=== PATIENT | female | born 1940 | race Caucasian/White ===

== ENCOUNTER 2018-05-05 23:25 | Emergency (ER) | payer OTHER ==
[~2018-05-05] VITALS: Ht 167.6 cm; Wt 70.3 kg
[~2018-05-05 23:25] MED LIST: ALBUTEROL SULF8.5 GM INH; CALCITRATE + D1 EACH; DIGOXIN250 MCG PO; ENALAPRIL MALEAT5 MG; FISH OIL 1,0001 EAC2 PO; MACRODANTIN100 MG PO; MEDROL4 MG/DOSE- PO; MULTIVITAMIN; TYLENOL WITH C1 EACH PO; ULTRAM50 MG PO; WARFARIN SODIU2.5 MG PO; Z.0.CELEBREX200 MG; Z.0.DIGOXIN125 MCG; Z.0.EVISTA60 MG PO; Z.0.LYRICA75 MG PO; Z.0.METOPROLOL SUCC5 PO; Z.0.SYNTHROID125 MCG PO; Z.0.VYTORIN 10-201 E; ZITHROMAX TRI-500 MG PO; [UNRECOGNIZED DRUG - OTHER] PO
--- NOTE | 2018-05-06 00:18 | Diagnostic Imaging Report ---
CHEST 2 VIEWS, Technique: CHEST 2 VIEWS Comparison: 08/27/2014 Clinical history: Hypertension DISCUSSION: Stable appearance of the heart, mediastinum, lungs and pleural spaces. Unchanged mild cardiomegaly and interstitial prominence. IMPRESSION: Stable chest without acute abnormality. Signed by: Dr Sil Nieves MD on 05/06/2018 12:14 AM
[2018-05-06 00:50] LABS: BASOPHILS % 0.4 % (0.0-1.0); EOSINOPHILS # (AUTO) 0.1 (0.0-0.4); HEMATOCRIT 34.5 % (34.2-44.1); HEMOGLOBIN 11.3 g/dL (12.0-16.0); LYMPHOCYTES # (AUTO) 1.8 (1.0-3.2); LYMPHOCYTES % 34.2 % (18.0-39.1); MEAN CORPUSCULAR HEMOGLOBIN 31.8 pg (28-32); MEAN CORPUSCULAR HGB CONC 32.8 g/dL (31-35); MEAN CORPUSCULAR VOLUME 97.2 fL (81-99); MONOCYTES # (AUTO) 0.5 (0.2-0.8); MONOCYTES % 10.2 % (4.4-11.3); NEUTROPHILS # (AUTO) 2.8 (2.1-6.9); NEUTROPHILS % 53.8 % (38.7-80.0); PLATELET COUNT 189 x10e3/uL (140-360); RED BLOOD COUNT 3.55 x10e6/uL (3.6-5.1); RED CELL DISTRIBUTION WIDTH 13.2 % (11.7-14.4)
[2018-05-06 00:54] LABS: CLARITY,URINE CLEAR (CLEAR); COLOR,URINE YELLOW (YELLOW); KETONES,URINE NEGATIVE (NEGATIVE); LEUKOCYTE ESTERASE ,URINE TRACE (NEGATIVE); NITRITE,URINE NEGATIVE (NEGATIVE); PROTEIN,URINE DIPSTICK 1+ (NEGATIVE)
[2018-05-06 00:55] LABS: BILIRUBIN,URINE NEGATIVE (NEGATIVE); URINE UROBILINOGEN 0.2 mg/dL (0.2 - 1)
[2018-05-06 00:57] LABS: INR 2.5; PROTHROMBIN TIME 25.4 seconds (11.9-14.5)
[2018-05-06 00:58] LABS: PARTIAL THROMBOPLASTIN TIME 34.4 seconds (23.8-35.5)
[2018-05-06 01:10] LABS: ALANINE AMINOTRANSFERASE 60 IU/L (0-55); ALBUMIN 4.1 g/dL (3.5-5.0); ALBUMIN/GLOBULIN RATIO 1.1 (0.8-2.0); ALKALINE PHOSPHATASE 59 IU/L (40-150); ANION GAP 11.9 mmol/L (8-16); BLOOD UREA NITROGEN 18 mg/dL (7-26); BUN/CREATININE RATIO 23 (6-25); CALCIUM 9.9 mg/dL (8.4-10.2); CARBON DIOXIDE 28 mmol/L (22-29); CHLORIDE 104 mmol/L (98-107); CREATINE KINASE 83 IU/L (29-168); CREATININE, SERUM 0.77 mg/dL (0.57-1.11); EST GLOMERULAR FILTRATION RATE > 60 ML/MIN (60-); GLUCOSE 106 mg/dL (74-118); MAGNESIUM 1.6 MG/DL (1.3-2.1); POTASSIUM 3.9 mmol/L (3.5-5.1); SODIUM 140 mmol/L (136-145)
[2018-05-06 01:13] LABS: BACTERIA,URINE RARE /HPF; EPITHELIAL CELLS,URINE RARE /LPF; MUCUS,URINE MANY (RARE); RBC,URINE 0-5 /HPF (0-5); WBC,URINE (MAN) 0-5 /HPF (0-5)
[2018-05-06 01:48] VITALS: BP 159/89
== END 2018-05-06 08:43 | disposition home or self-care (01) ==
LOC: ER 23:25
DX: I10 Essential (primary) hypertension (principal); E11.9 Type 2 diabetes mellitus without complications; I48.91 Unspecified atrial fibrillation; J44.9 Chronic obstructive pulmonary disease, unspecified
CPT/HCPCS: 36415; 71046; 80053; 81001; 82550; 82553; 83735; 83880; 84484; 85025; 85610; 85730; 93005; 99284

== ENCOUNTER → 2018-06-04 | Outpatient (CLI) | payer OTHER ==
[~2018-06-04] MED LIST changes: +REGADENOSON 0.4 MG/5 ML SYR IV ONE
--- NOTE | 2018-06-05 14:06 | Cardiology Report ---
DATE OF STUDY: June 04, 2018 LEXISCAN NUCLEAR STRESS TEST INDICATIONS: Chest pain. DESCRIPTION OF PROCEDURE: After informed consent, patient was brought to the stress lab. She was given 11 mCi of technetium 99 Myoview and myocardial perfusion SPECT image was obtained in the horizontal long-axis, short-axis and vertical long-axis views. Subsequently, patient was given 0.4 mg Lexiscan over 10 seconds. Patient was given 32 mCi of technetium 99 Myoview, and myocardial perfusion SPECT images obtained in the horizontal long-axis, short-axis and vertical long-axis views. Gated images were also obtained. Patient tolerated the procedure without any complications. REPORT: Baseline EKG shows sinus rhythm at 86 beats per minute normal axis, normal intervals, nonspecific ST-T changes. PARAMETERS 1. Resting heart rate is 77 beats. 2. Maximum heart rate is 107 beats per minute. 3. Resting blood pressure is 203/105 mmHg. 4. Maximum blood pressure is 203/105 mmHg. REASON FOR TERMINATION: Endpoint attained. INTERPRETATION 1. Negative chest pain. 2. Negative for arrhythmias. 3. Blood response consistent with Lexiscan. 4. No significant ST-T changes seen during Lexiscan infusion compared to baseline. 5. Analysis SPECT images reveals uniform radioisotope uptake in all segments of myocardium without any significant perfusion defects. CONCLUSION: 1. No evidence of significant ischemia or infarction on study. 2. No wall motion abnormalities. 3. Overall ejection fraction is 56%. Job#: [id number]
== END ==
LOC: NM 07:23
DX: R07.2 Precordial pain (principal)
CPT/HCPCS: 78452; 93017; A9502

== ENCOUNTER → 2020-05-14 | Day surgery (SDC) | payer OTHER ==
[2020-05-10 14:58] LABS: BASOPHILS % 0.3 % (0.0-1.0); EOSINOPHILS % 0.6 % (0.0-6.0); HEMOGLOBIN 12.5 g/dL (12.0-16.0); LYMPHOCYTES # (AUTO) 1.9 (1.0-3.2); LYMPHOCYTES % 28.9 % (18.0-39.1); MEAN CORPUSCULAR HEMOGLOBIN 30.5 pg (28-32); MEAN CORPUSCULAR HGB CONC 32.1 g/dL (31-35); MEAN CORPUSCULAR VOLUME 95.1 fL (81-99); MONOCYTES # (AUTO) 0.8 (0.2-0.8); MONOCYTES % 12.3 % (4.4-11.3); NEUTROPHILS # (AUTO) 3.8 (2.1-6.9); NEUTROPHILS % 57.5 % (38.7-80.0); PLATELET COUNT 204 x10e3/uL (140-360); RED CELL DISTRIBUTION WIDTH 13.7 % (11.7-14.4)
[2020-05-10 15:20] LABS: ALBUMIN 4.2 g/dL (3.5-5.0); ALBUMIN/GLOBULIN RATIO 1.1 (0.8-2.0); ANION GAP 13.9 mmol/L (8-16); CALCIUM 10.3 mg/dL (8.4-10.2); CREATININE, SERUM 1.03 mg/dL (0.57-1.11); POTASSIUM 4.9 mmol/L (3.5-5.1)
[~2020-05-14] VITALS: Ht 167.6 cm; Wt 77.1 kg
[~2020-05-14] MED LIST changes: +ALPRAZOLAM 0.5 MG TAB ONE; +CALCIUM600 MG PO; +CENTRUM SILVER1 EAC5 PO; +DIPHENHYDRAMINE HCL 25 MG CAP ONE; +FAMOTIDINE 20 MG/2 ML VIAL IV ONE; +FENTANYL CITRATE/PF 100MCG/2 ML INJ ONE; +FUROSEMIDE40 MG PO; +HEPARIN SOD/SOD CHLORIDE 2,000 ML ONE; +IOPAMIDOL 370 MG/ML 200 ML INFUS..BTL INJ ONE; +LEVOTHYROXINE175 MCG PO; +LIDOCAINE HCL 2% LOCAL 20 ML VIAL ONE; +LIPITOR20 MG PO; +METFORMIN HCL500 MG PO; +METHYLPREDNISOLONE SOD SUCC 125 MG/2ML VIAL ONE; +METOPROLOL TART50 MG PO; +MIDAZOLAM HCL 2 MG/2 ML VIAL ONE; +POTASSIUM CHLO20 ME1 PO; -REGADENOSON 0.4 MG/5 ML SYR IV ONE; +SODIUM CHLORIDE 0.9% 1000ML 1,000 ML ONE; +VERAPAMIL HCL 2.5 MG/ML 2 ML VIAL ONE; +VITAMIN D3 PO
[2020-05-14 09:45] VITALS: BP 135/80
[2020-05-14 10:30] VITALS: BP 155/83
--- NOTE | 2020-05-14 10:30 | NUR ---
1030am RECEIVING NOTE [employer] COUNSEL[employer] RECOV[employer] DEPT............................................................... Bedside report received from IDANIA Mariscal. [id number]. Alert oriented and appropriate, PERRLA, respirations even and unlabored to room air. Pulses x4 extremities equal and strong. Pedal pulses PT/DP x4 and marked. Cap fill brisk < 3 sec. Skin warm and dry integrity appears D/I. IV 20g to XXX presents healthy w/o s/s of infiltration or complaint. Abdomen soft and supple. pt offered toileting, denies need to urinate or defecate. No personal affects with patient. Family at bedside Dr Sy spoke to daughter. Pt and family verbalizes understanding of POC. Currently w/o complaint of pain or need. mikhail/rn
[2020-05-14 10:45] VITALS: BP 121/87
--- NOTE | 2020-05-14 10:58 | Operative Report ---
DATE OF PROCEDURE: 05/14/2020 SURGEON: Alejandro Sy MD INDICATION: Coronary artery disease, abnormal stress test, and angina. COMPLICATIONS: None. RECOMMENDATIONS: Medical therapy. PROCEDURES PERFORMED: 1. Conscious sedation, 35 minutes. 2. Left heart catheterization, selective coronary angiography. 3. Deployment of right groin Mynx closure device. DESCRIPTION OF PROCEDURE: Access was obtained in the right femoral artery. A 6-Romansh sheath was placed. Coronary angiography demonstrated mild coronary artery disease 10% to 20% luminal stenosis in the left main, proximal left anterior descending artery, circumflex artery, and right coronary artery. Mid left anterior descending artery 50% stenosis. LV end-diastolic pressure of 15, 10 to 15 mm [id number] aortic valve gradient on pullback and no intervention deemed necessary. Right groin repaired using Mynx closure device. The patient discharged home same day. Alejandro Sy MD [facility] /[id number]
[2020-05-14 11:00] VITALS: BP 146/77
[2020-05-14 11:30] VITALS: BP 144/77
[2020-05-14 12:00] VITALS: BP 148/66
--- NOTE | 2020-05-14 12:00 | NUR ---
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 Rt Groin Mynx site assessed for s/s of complication and presence of hematoma. Skin warm, dry, no discolor, and pulses present. IV removed from left wrist. Distal tip appears intact. VS WNL. Pt denies pain, sob, or need at this time. Family at bedside. Review of discharge paperwork and follow up instructions. verbalized understanding. Pt to wheelchair and transported to front of hospital. Transferred to private vehicle under own strength w/o incident with DC paperwork in hand. - mikhail/july
== END | disposition home or self-care (01) ==
LOC: CATH LAB 07:26
PROVIDERS: ATTEND Internal Medicine Interventional Cardiology
DX: I25.118 Atherosclerotic heart disease of native coronary artery with other forms of angina pectoris (principal); R94.39 Abnormal result of other cardiovascular function study; I27.20 Pulmonary hypertension, unspecified; I48.91 Unspecified atrial fibrillation; J44.9 Chronic obstructive pulmonary disease, unspecified; E11.9 Type 2 diabetes mellitus without complications; Z91.041 Radiographic dye allergy status; Z01.812 Encounter for preprocedural laboratory examination; Z11.59 Encounter for screening for other viral diseases; Z79.01 Long term (current) use of anticoagulants; Z79.84 Long term (current) use of oral hypoglycemic drugs; Z82.49 Family history of ischemic heart disease and other diseases of the circulatory system
CPT/HCPCS: 36415; 80053; 85025; 87635; 93454; 93458; 99152; C1760; C1769; J2001; J2250; J2930; J3010; J7030; Q9967

== ENCOUNTER → 2021-12-01 | Day surgery (SDC) | payer OTHER ==
[2021-11-29 09:20] LABS: BASOPHILS % 0.3 % (0.0-1.0); EOSINOPHILS % 0.4 % (0.0-6.0); HEMATOCRIT 41.2 % (34.2-44.1); HEMOGLOBIN 12.6 g/dL (12.0-16.0); LYMPHOCYTES # (AUTO) 1.7 (1.0-3.2); LYMPHOCYTES % 25.1 % (18.0-39.1); MEAN CORPUSCULAR HGB CONC 30.6 g/dL (31-35); MEAN CORPUSCULAR VOLUME 101.2 fL (81-99); MONOCYTES # (AUTO) 0.7 (0.2-0.8); NEUTROPHILS # (AUTO) 4.4 (2.1-6.9); NEUTROPHILS % 63.9 % (38.7-80.0); PLATELET COUNT 169 x10e3/uL (140-360); RED BLOOD COUNT 4.07 x10e6/uL (3.6-5.1); RED CELL DISTRIBUTION WIDTH 12.9 % (11.7-14.4)
[2021-11-29 09:40] LABS: ANION GAP 14.1 mmol/L (8-16); CALCIUM 10.4 mg/dL (8.4-10.2); CREATININE, SERUM 0.96 mg/dL (0.57-1.11); POTASSIUM 4.1 mmol/L (3.5-5.1)
[~2021-12-01] MED LIST changes: -ALPRAZOLAM 0.5 MG TAB ONE; +ANORO ELLIPTA1 EACH; +B12 ACTIVE1000 MCG; +BALANCED SALT SOLN (OPTH) 15 ML BTL IO ONE; +BUPIVACAINE HC 0.75% PF 10ML VIAL INJ ONE; +CYCLOPENTOLATE HCL 2% OPTH SOLN 2 ML BTL OP ONE; -DIPHENHYDRAMINE HCL 25 MG CAP ONE; +ELIQUIS5 MG PO; +EPINEPHRINE HCL 1:1000 1ML 1 MG/ML AMP ONE; -FAMOTIDINE 20 MG/2 ML VIAL IV ONE; -FENTANYL CITRATE/PF 100MCG/2 ML INJ ONE; +GATIFLOXACIN(OPTH) 5 ML LIQD ONE; -HEPARIN SOD/SOD CHLORIDE 2,000 ML ONE; -IOPAMIDOL 370 MG/ML 200 ML INFUS..BTL INJ ONE; +IRON; +LIDOCAINE 2% /EPINEPHRINE 20 ML SDV INJ ONE; -LIDOCAINE HCL 2% LOCAL 20 ML VIAL ONE; +LIDOCAINE HCL 2% LOCAL INJ 5 ML SDV VIAL INJ ONE; +LIDOCAINE HCL-PF 4% 40 MG/1 ML 5ML AMP ONE; -METHYLPREDNISOLONE SOD SUCC 125 MG/2ML VIAL ONE; -MIDAZOLAM HCL 2 MG/2 ML VIAL ONE; +PHENYLEPHRINE HCL 2 ML DROPS ONE; +PILOCARPINE HCL(OPTH) 15 ML LIQD ONE; +POVIDONE IODINE 0.05% 0.05 % ML PO ONE; +POVIDONE IODINE 5% (OPTH) 30 ML BTL ONE; +PROPOFOL IV EMULSION 10 MG/ML 20 ML VIAL ONE; -SODIUM CHLORIDE 0.9% 1000ML 1,000 ML ONE; +TOBRAMYCIN/DEXAMETHASONE(OPTH) 3.5 GM TUBE ONE; -VERAPAMIL HCL 2.5 MG/ML 2 ML VIAL ONE
[2021-12-01 09:20] VITALS: BP 159/89
== END | disposition home or self-care (01) ==
LOC: OR 06:50
PROVIDERS: ATTEND Ophthalmology
DX: H25.11 Age-related nuclear cataract, right eye (principal); I48.91 Unspecified atrial fibrillation; E11.9 Type 2 diabetes mellitus without complications; E03.9 Hypothyroidism, unspecified; J44.9 Chronic obstructive pulmonary disease, unspecified; I25.10 Atherosclerotic heart disease of native coronary artery without angina pectoris; I11.0 Hypertensive heart disease with heart failure; I50.9 Heart failure, unspecified; M19.90 Unspecified osteoarthritis, unspecified site; Z01.810 Encounter for preprocedural cardiovascular examination; Z01.812 Encounter for preprocedural laboratory examination; Z20.822 Contact with and (suspected) exposure to COVID-19; Z79.84 Long term (current) use of oral hypoglycemic drugs; Z79.02 Long term (current) use of antithrombotics/antiplatelets; Z79.899 Other long term (current) drug therapy; Z87.891 Personal history of nicotine dependence
CPT/HCPCS: 36415; 80048; 82948; 85025; 93005; J0171; J2001; U0002

== ENCOUNTER → 2023-12-13 | Day surgery (SDC) | payer OTHER ==
[2023-12-11 11:38] LABS: BASOPHILS % 0.2 % (0.0-1.0); EOSINOPHILS % 0.7 % (0.0-6.0); HEMATOCRIT 40.4 % (34.2-44.1); LYMPHOCYTES # (AUTO) 1.3 (1.0-3.2); LYMPHOCYTES % 22.4 % (18.0-39.1); MEAN CORPUSCULAR HEMOGLOBIN 32.7 pg (28-32); MEAN CORPUSCULAR HGB CONC 29.7 g/dL (31-35); MEAN CORPUSCULAR VOLUME 110.1 fL (81-99); MONOCYTES # (AUTO) 0.7 (0.2-0.8); MONOCYTES % 11.9 % (4.4-11.3); NEUTROPHILS # (AUTO) 3.8 (2.1-6.9); NEUTROPHILS % 64.6 % (38.7-80.0); PLATELET COUNT 133 x10e3/uL (140-360); RED BLOOD COUNT 3.67 x10e6/uL (3.6-5.1); RED CELL DISTRIBUTION WIDTH 14.6 % (11.7-14.4)
[2023-12-11 12:00] LABS: ANION GAP 15.6 mmol/L (8-16); CREATININE, SERUM 1.05 mg/dL (0.57-1.11); POTASSIUM 4.6 mmol/L (3.5-5.1)
[~2023-12-13] MED LIST changes: +ATROVENT HFA12.9 GM INH; -GATIFLOXACIN(OPTH) 5 ML LIQD ONE; +LACTATED RINGER'S 1,000 ML ONE; -LIDOCAINE HCL 2% LOCAL INJ 5 ML SDV VIAL INJ ONE; +MOXIFLOXACIN HCL(OPTH) 3 ML BTL ONE; +NEOMYCIN/POLYMYXIN/DEX (OPTH) 3.5 GM TUBE ONE; -PILOCARPINE HCL(OPTH) 15 ML LIQD ONE; -POVIDONE IODINE 0.05% 0.05 % ML PO ONE; -PROPOFOL IV EMULSION 10 MG/ML 20 ML VIAL ONE; -TOBRAMYCIN/DEXAMETHASONE(OPTH) 3.5 GM TUBE ONE
[2023-12-13 09:12] VITALS: TEMP 97.5
[2023-12-13 09:40] VITALS: BP 144/92; PULSE 90; RESP 18; O2SAT 94
== END | disposition home or self-care (01) ==
LOC: OR 05:37
PROVIDERS: ATTEND Ophthalmology
DX: H25.12 Age-related nuclear cataract, left eye (principal); G47.33 Obstructive sleep apnea (adult) (pediatric); I11.0 Hypertensive heart disease with heart failure; I50.9 Heart failure, unspecified; I25.10 Atherosclerotic heart disease of native coronary artery without angina pectoris; E78.5 Hyperlipidemia, unspecified; J45.909 Unspecified asthma, uncomplicated; E11.9 Type 2 diabetes mellitus without complications; E03.9 Hypothyroidism, unspecified; F41.9 Anxiety disorder, unspecified; F32.A Depression, unspecified; Z01.810 Encounter for preprocedural cardiovascular examination; Z01.812 Encounter for preprocedural laboratory examination; Z79.84 Long term (current) use of oral hypoglycemic drugs; Z79.899 Other long term (current) drug therapy; Z99.81 Dependence on supplemental oxygen; Z98.61 Coronary angioplasty status; Z87.891 Personal history of nicotine dependence
CPT/HCPCS: 36415 ×2; 66984; 80048; 82948; 85025; 93005; J0171; J2001; J7121

== ENCOUNTER 2024-08-23 18:54 | Emergency (ER) | payer OTHER ==
[~2024-08-23] VITALS: Ht 167.6 cm; Wt 77.1 kg
[~2024-08-23 18:54] MED LIST changes: -BALANCED SALT SOLN (OPTH) 15 ML BTL IO ONE; -BUPIVACAINE HC 0.75% PF 10ML VIAL INJ ONE; -CYCLOPENTOLATE HCL 2% OPTH SOLN 2 ML BTL OP ONE; -EPINEPHRINE HCL 1:1000 1ML 1 MG/ML AMP ONE; -LACTATED RINGER'S 1,000 ML ONE; -LIDOCAINE 2% /EPINEPHRINE 20 ML SDV INJ ONE; -LIDOCAINE HCL-PF 4% 40 MG/1 ML 5ML AMP ONE; -MOXIFLOXACIN HCL(OPTH) 3 ML BTL ONE; -NEOMYCIN/POLYMYXIN/DEX (OPTH) 3.5 GM TUBE ONE; -PHENYLEPHRINE HCL 2 ML DROPS ONE; -POVIDONE IODINE 5% (OPTH) 30 ML BTL ONE
[2024-08-23 19:30] VITALS: PULSE 73; RESP 20; TEMP 98.2; O2SAT 99
[2024-08-23] MEDS ORDERED: LIDOCAINE 1% 10 ML MULTIDOSE VIAL IJ ONE (19:32)
[2024-08-23] MEDS ORDERED: CEPHALEXIN500 MG PO (19:34)
[2024-08-23] MEDS ORDERED: SILVER NITRATE SWABS ONE (19:38)
[2024-08-23] MEDS: LIDOCAINE 1% 10 ML MULTIDOSE VIAL IJ ONE (20:15)
[2024-08-23] MEDS: SILVER NITRATE SWABS TOP ONE (20:44)
== END 2024-08-23 21:00 | disposition home or self-care (01) ==
LOC: ER 19:00
DX: S61.002A Unspecified open wound of left thumb without damage to nail, initial encounter (principal); R58 Hemorrhage, not elsewhere classified; I10 Essential (primary) hypertension; E11.9 Type 2 diabetes mellitus without complications; J44.9 Chronic obstructive pulmonary disease, unspecified; E78.5 Hyperlipidemia, unspecified; I48.91 Unspecified atrial fibrillation
CPT/HCPCS: 12001; 99282; J2003